=== PATIENT | male | born 1955 | race Caucasian/White ===

== ENCOUNTER 2024-10-12 06:42 | Emergency (ER) | payer MEDICARE, MEDICAID ==
[~2024-10-12] VITALS: Ht 170.2 cm; Wt 75.2 kg
[2024-10-12 07:46] LABS: BASOPHILS % (AUTO) 0.1 % (0-1); EOSINOPHILS # (AUTO) 0.1 X10'3 (0-0.9); EOSINOPHILS % (AUTO) 0.9 % (0-6); HEMATOCRIT 50.9 % (42.0-52.0); HEMOGLOBIN 17.7 g/dl (14.0-17.9); LYMPHOCYTES # (AUTO) 0.6 X10'3 (1.1-4.8); LYMPHOCYTES % (AUTO) 4.2 % (21-51); MEAN CORPUSCULAR HEMOGLOBIN 32.1 PG (27.0-31.0); MEAN CORPUSCULAR HGB CONC 34.8 g/dL (33.0-36.5); MEAN CORPUSCULAR VOLUME 92.2 FL (78-98); MEAN PLATELET VOLUME 8.8 FL (7.4-10.4); MONOCYTES # (AUTO) 0.7 X10'3 (0-0.9); MONOCYTES % (AUTO) 4.4 % (2-12); NEUTROPHILS # (AUTO) 13.6 X10'3 (1.8-7.7); NEUTROPHILS % (AUTO) 90.4 % (42-75); PLATELET COUNT 153 X10'3 (140-440); RED BLOOD COUNT 5.51 X10'6 (4.70-6.10); RED CELL DISTRIBUTION WIDTH 13.7 % (11.5-14.5); WHITE BLOOD COUNT 15.1 X10'3 (4.5-11.0)
[2024-10-12] MEDS: normal saline 1000ML IV soln IVB ONE (07:54)
[2024-10-12] MEDS: ondansetron/PF 4mg/2ml inj IV ONE (07:54)
[2024-10-12 07:57] LABS: ALANINE AMINOTRANSFERASE 29 U/L (12-78); ALBUMIN 4.5 G/DL (3.4-5.0); ALBUMIN/GLOBULIN RATIO 1.2 (1.1-1.5); ALKALINE PHOSPHATASE 122 IU/L (46-116); AMYLASE 84 U/L (25-115); ANION GAP 8 (8-16); ASPARTATE AMINO TRANSFERASE 28 U/L (10-37); BILIRUBIN,TOTAL 1.2 MG/DL (0.1-1.0); BLOOD UREA NITROGEN 10 MG/DL (7-18); BUN/CREATININE RATIO 8.1 (10.0-20.0); CALCIUM 9.8 MG/DL (8.5-10.1); CHLORIDE 102 MMOL/L (99-107); CREATININE 1.23 MG/DL (0.60-1.10); GLUCOSE 149 MG/DL (70-104); LIPASE 35 U/L (16-77); POTASSIUM 4.8 MMOL/L (3.5-5.1); SODIUM 135 MMOL/L (135-145); TOTAL CARBON DIOXIDE 25.1 MMOL/L (24-32); TOTAL PROTEIN 8.3 G/DL (6.4-8.2); eCRCL 52 ML/MIN; eGFR 58 ML/MIN
[2024-10-12 08:22] LABS: ETHANOL < 10 MG/DL (<10)
[2024-10-12] MEDS: normal saline 1000ml 1,000 ML IV ONE (09:35)
[2024-10-12] MEDS: piperacillin/tazo 3.375gm/50ml 50 ML IV ONE (10:46)
[2024-10-12] MEDS: metroNIDAZOLE 500mg tablet PO ONE (11:18)
[2024-10-12] MEDS ORDERED: METR-159 PO (12:18)
[2024-10-12] MEDS ORDERED: ONDA-243 PO (12:18)
[2024-10-12 12:25] VITALS: BP 128/78; PULSE 96; RESP 16; TEMP 97.6; O2SAT 91
== END 2024-10-12 12:31 | disposition home or self-care (01) ==
LOC: ER 06:44
DX: K52.9 Noninfective gastroenteritis and colitis, unspecified (principal); I25.10 Atherosclerotic heart disease of native coronary artery without angina pectoris; E78.00 Pure hypercholesterolemia, unspecified; Z88.5 Allergy status to narcotic agent
CPT/HCPCS: 36415; 74176; 80053; 82150; 83690; 83735; 85025; 96361; 96365; 96375; 99285; G0480; J2405; J2543; J7030; 80320

== ENCOUNTER 2025-03-30 09:02 | Day surgery (SDC) | payer MEDICARE, MEDICAID ==
[2025-03-30] VITALS (8 sets, daily range): BP systolic 90–135; BP diastolic 54–84; PULSE 60–79; RESP 14–16; TEMP 97.9; O2SAT 96–97
[~2025-03-30] VITALS: Ht 170.2 cm; Wt 75.6 kg
[~2025-03-30 09:02] MED LIST: ASPI81TA52 PO; ESOM20CA PO; LIDOcaine 2% Viscous 15ml cup ONE; TAMS-55 PO
[2025-03-30] MEDS ORDERED: propofol inj 0 ML IV ONE (10:44)
[2025-03-30] MEDS ORDERED: propofol inj 20 ML IV ONE ×2 (10:56)
== END 2025-03-30 12:05 | disposition home or self-care (01) ==
LOC: OR 09:02
PROVIDERS: ATTEND Internal Medicine Gastroenterology
DX: R13.10 Dysphagia, unspecified (principal); K29.80 Duodenitis without bleeding; K31.89 Other diseases of stomach and duodenum; I25.10 Atherosclerotic heart disease of native coronary artery without angina pectoris; K21.9 Gastro-esophageal reflux disease without esophagitis; Z79.82 Long term (current) use of aspirin; Z79.899 Other long term (current) drug therapy; Z95.5 Presence of coronary angioplasty implant and graft; Z88.5 Allergy status to narcotic agent
CPT/HCPCS: 43239; 82948; 88305; 88342; A4620; J2704; J7040; Z7512; Z7610